=== PATIENT | male | born 1965 | race Caucasian/White ===

== ENCOUNTER 2022-05-04 15:02 | Emergency (ER) | payer BC, OTHER ==
[~2022-05-04] VITALS: Ht 180.3 cm; Wt 95.3 kg
[~2022-05-04 15:02] MED LIST: ALPR1T GT
[2022-05-04 15:39] LABS: BILIRUBIN,URINE NEGATIVE (NEGATIVE); CLARITY,URINE CLEAR; COLOR,URINE AMBER; GLUCOSE, URINE (UA) NEGATIVE (NEGATIVE); KETONES,URINE NEGATIVE (NEGATIVE); LEUKOCYTE ESTERASE ,URINE NEGATIVE (NEGATIVE); NITRITE,URINE NEGATIVE (NEGATIVE); PROTEIN,URINE NEGATIVE (NEGATIVE)
[2022-05-04] MEDS ORDERED: NS IV 1000 ML 1,000 ML IV STA (15:51)
--- NOTE | 2022-05-04 15:55 | ED Abdominal Pain ---
General Chief Complaint: Abdominal/GI Problems Stated Complaint: POSS KIDNEY STONE Nursing Triage Note: PT AMBULATE TO ROOM FT3 WITH C/O LEFT FLANK AND LEFT SIDE ABD PAIN STARTING THIS MORNING. PT REPORTS HX OF KIDNEY STONES AND STATES THAT THIS FEELS LIKE A KIDNEY STONE. Source of Information: Patient Exam Limitations: No Limitations History of Present Illness Date Seen by Provider: May 04, 2022 Time Seen by Provider: 15:52 Initial Comments Patient is a 56-year-old male who presents ED with left lower abdominal pain. Pain started around 10:00 this morning described as a dull constant pain. Rates pain 7 out of 10. Reports a pain and discomfort to the left flank. denies taking anything for pain at home. Nausea without vomiting or diarrhea. Reports pain that radiates into the testicles. Denies of any testicle pain but does have some pain in the groin area. Denies history of an inguinal hernia. No scrotum swelling or redness. Noticed his urine that was dark today. Denies of any pain with urination, vomiting, diarrhea, chest pain, shortness of breath. History of kidney stones and states this feels very similar. Allergies and Home Medications Allergies Coded Allergies: No Known Drug Allergies (Unverified , 02/10/15) Patient Home Medication List Home Medication List Reviewed: Yes Alprazolam (Xanax Tablet) 1 Mg Tab, 1 MG GT Q8H PRN for ANXIETY, (Reported) Entered as Reported by: EMANUEL SNELL on 02/16/15 0830 Hydrocodone/Acetaminophen (Hydrocodone-Acetamin 5-325 mg) 5 Mg-325 Mg Tablet, 1 TAB PO Q4H PRN for PAIN-MODERATE (5-7) Prescribed by: CAMILA VALENZUELA on 05/04/221651 Ondansetron (Ondansetron Odt) 4 Mg Tab.rapdis, 4 MG PO Q4H Prescribed by: CAMILA VALENZUELA on 05/04/221651 Tamsulosin HCl (Flomax) 0.4 Mg Cap, 0.4 MG PO DAILY Prescribed by: CAMILA VALENZUELA on 05/04/221651 Review of Systems Review of Systems Constitutional: No chills, No diaphoresis, No malaise, No weakness EENTM: No Blurred Vision, No Eye Pain Respiratory: Denies Cough, Denies Orthopnea Cardiovascular: Denies Chest Pain Gastrointestinal: Abdominal Pain; Denies Diarrhea; Nausea; Denies Vomiting Genitourinary: Denies Burning, Denies Discharge; Flank Pain, Hematuria Musculoskeletal: back pain; No joint pain Skin: No change in color, No change in hair/nails All Other Systems Reviewed Negative Unless Noted: Yes Past Nrjjcyt-Fmlcgh-Whsmkt Hx Patient Social History Tobacco Use?: No Smoking Status: Never a Smoker Smokeless Tobacco Frequency: Never a User Use of E-Cig and/or Vaping dev: No Use of E-Cig and/or Vaping Uriel: Never a User Substance use?: No Alcohol Use?: Yes Alcohol Frequency: Once in a while Pt feels they are or have been: No Immunizations Up To Date COVID19 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 oz. 83.981335yp; 29.00 BMI Method: General Appearance: WD/WN, no apparent distress HEENT: PERRL/EOMI, normal ENT inspection, TMs normal, pharynx normal Neck: non-tender, full range of motion, supple Respiratory: chest non-tender, lungs clear, normal breath sounds, no respiratory distress Cardiovascular: regular rate, rhythm, no edema, no gallop, no JVD Gastrointestinal: normal bowel sounds, soft, no organomegaly, tenderness (Left lower quadrant tenderness.) Extremities: normal range of motion, non-tender, normal inspection, no pedal edema, no calf tenderness Back: normal inspection, no CVA tenderness, no vertebral tenderness Male: normal genitalia, inguinal tenderness; No testicular tenderness 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, no motor/sensory deficits, alert, normal mood/affect, oriented x 3 Progress/Results/Core Measures Results/Orders Lab Results Laboratory Tests Test 05/04/22 15:27 05/04/22 16:04 Range/Units Urine Color JERALD H Urine Clarity CLEAR Urine pH 7.0 5-9 Urine Specific [place] 1.015 L 1.016-1.022 Urine Protein NEGATIVE NEGATIVE Urine Glucose (UA) NEGATIVE NEGATIVE Urine Ketones NEGATIVE NEGATIVE Urine Nitrite NEGATIVE NEGATIVE Urine Bilirubin NEGATIVE NEGATIVE Urine Urobilinogen 0.2 < = 1.0 MG/DL Urine Leukocyte Esterase NEGATIVE NEGATIVE Urine RBC (Auto) 3+ H NEGATIVE Urine RBC TNTC H /HPF Urine WBC RARE /HPF Urine Squamous Epithelial Cells NONE /HPF Urine Crystals NONE /LPF Urine Bacteria TRACE /HPF Urine Casts NONE /LPF Urine Mucus NEGATIVE /LPF Urine Culture Indicated NO White Blood Count 8.8 4.3-11.0 10^3/uL Red Blood Count 5.42 4.30-5.52 10^6/uL Hemoglobin 15.4 13.3-17.7 g/dL Hematocrit 44 40-54 % Mean Corpuscular Volume 82 80-99 fL Mean Corpuscular Hemoglobin 28 25-34 pg Mean Corpuscular Hemoglobin Concent 35 32-36 g/dL Red Cell Distribution Width 13.5 10.0-14.5 % Platelet Count 295 130-400 10^3/uL Mean Platelet Volume 9.8 9.0-12.2 fL Immature Granulocyte % (Auto) 1 % Neutrophils (%) (Auto) 66 42-75 % Lymphocytes (%) (Auto) 22 12-44 % Monocytes (%) (Auto) 8 0-12 % Eosinophils (%) (Auto) 2 0-10 % Basophils (%) (Auto) 1 0-10 % Neutrophils # (Auto) 5.9 1.8-7.8 10^3/uL Lymphocytes # (Auto) 1.9 1.0-4.0 10^3/uL Monocytes # (Auto) 0.7 0.0-1.0 10^3/uL Eosinophils # (Auto) 0.2 0.0-0.3 10^3/uL Basophils # (Auto) 0.0 0.0-0.1 10^3/uL Immature Granulocyte # (Auto) 0.0 0.0-0.1 10^3/uL Sodium Level 143 135-145 MMOL/L Potassium Level 3.8 3.6-5.0 MMOL/L Chloride Level 105 98-107 MMOL/L Carbon Dioxide Level 26 21-32 MMOL/L Anion Gap 12 5-14 MMOL/L Blood Urea Nitrogen 15 7-18 MG/DL Creatinine 1.49 H 0.60-1.30 MG/DL Estimat Glomerular Filtration Rate 54 BUN/Creatinine Ratio 10 Glucose Level 105 70-105 MG/DL Calcium Level 9.4 8.5-10.1 MG/DL Corrected Calcium 9.1 8.5-10.1 MG/DL Total Bilirubin 0.3 0.1-1.0 MG/DL Aspartate Amino Transf (AST/SGOT) 23 5-34 U/L Alanine Aminotransferase (ALT/SGPT) 43 0-55 U/L Alkaline Phosphatase 82 40-136 U/L Total Protein 7.7 6.4-8.2 GM/DL Albumin 4.4 3.2-4.5 GM/DL Lipase 33 8-78 U/L My Orders Orders - RENITA HERNANDEZ Urinalysis (05/04/22 15:31) Ct Abd/Pelvis Wo(Kidney Stone) (05/04/22 15:51) Cbc With Automated Diff (05/04/22 15:51) Comprehensive Metabolic Panel (05/04/22 15:51) Lipase (05/04/22 15:51) Ns Iv 1000 Ml (Sodium Chloride 0.9%) (05/04/22 15:51) Ketorolac Injection (Toradol Injection) (05/04/22 16:00) Ed Iv/Invasive Line Start (05/04/22 16:06) Medications Given in ED Current Medications Medications Dose Ordered Sig/Antonio Route Start Time Stop Time Status Last Admin Dose Admin Ketorolac Tromethamine 30 mg ONCE ONCE IVP 05/04/22 16:00 05/04/22 16:01 DC 05/04/22 16:04 30 MG Vital Signs/I&O 05/04/22 15:22 Temp 36.0 Pulse 83 Resp 17 B/P (MAP) 153/89 (110) O2 Delivery Room Air Blood Pressure Mean: 110 Departure Communication (PCP) Patient presents the ED with left lower quadrant pain and left flank pain with pain that radiates into the groin. Started this morning. Rates pain 7 out of 10. Patient Was given Toradol with complete resolution of pain. Urinalysis positive for hematuria without evidence of infection. Normal white blood count. Small change in his creatinine 1.49. Urinating without passing of clots. No vomiting here. CT abdomen and pelvis shows 2 stones within the distal left ureter measuring up to 0.2 cm resulting in mild left hydronephrosis. Patient pain improved. Received a liter of fluid. Requesting to be discharged. Patient does not appear septic or toxic. Will discharge with Flomax, pain medication and nausea medication. Recommend urology outpatient follow-up. If any worsening symptoms return back to ED for further evaluation. Impression Primary Impression: Ureterolithiasis Disposition: 01 HOME, SELF-CARE Condition: Stable Departure-Patient Inst. Decision time for Depature: 16:50 Referrals: LAURA CANO DO (PCP) Primary Care Physician BARRY DOMINGUEZ MD Patient Instructions: Kidney Stones (DC) Scripts Ondansetron (Ondansetron Odt) 4 Mg Tab.rapdis 4 MG PO Q4H, #8 TAB Prov: RENITA HERNANDEZ 05/04/22 Hydrocodone/Acetaminophen (Hydrocodone-Acetamin 5-325 mg) 5 Mg-325 Mg Tablet 1 TAB PO Q4H PRN for PAIN-MODERATE (5-7), #8 TAB Prov: RENITA HERNANDEZ 05/04/22 Tamsulosin HCl (Flomax) 0.4 Mg Cap 0.4 MG PO DAILY, #20 CAP Prov: RENITA HERNANDEZ 05/04/22 RENITA HERNANDEZ May 04, 2022 15:55
[2022-05-04 15:58] LABS: BACTERIA,URINE TRACE /HPF; RBC,URINE TNTC /HPF; WBC,URINE RARE /HPF
[2022-05-04] MEDS ORDERED: KETOROLAC 30 MG/ML VIAL IVP ONE (16:00)
[2022-05-04 16:10] LABS: BASOPHILS % (AUTO) 1 % (0-10); EOSINOPHILS # (AUTO) 0.2 10^3/uL (0.0-0.3); EOSINOPHILS % (AUTO) 2 % (0-10); HEMATOCRIT 44 % (40-54); HEMOGLOBIN 15.4 g/dL (13.3-17.7); LYMPHOCYTES # (AUTO) 1.9 10^3/uL (1.0-4.0); LYMPHOCYTES % (AUTO) 22 % (12-44); MEAN CORPUSCULAR HEMOGLOBIN 28 pg (25-34); MEAN CORPUSCULAR HGB CONC 35 g/dL (32-36); MEAN CORPUSCULAR VOLUME 82 fL (80-99); MEAN PLATELET VOLUME 9.8 fL (9.0-12.2); MONOCYTES # (AUTO) 0.7 10^3/uL (0.0-1.0); MONOCYTES % (AUTO) 8 % (0-12); NEUTROPHILS # (AUTO) 5.9 10^3/uL (1.8-7.8); NEUTROPHILS % (AUTO) 66 % (42-75); PLATELET COUNT 295 10^3/uL (130-400); WHITE BLOOD COUNT 8.8 10^3/uL (4.3-11.0)
--- NOTE | 2022-05-04 16:21 | Diagnostic Imaging Report ---
EXAMINATION: CT abdomen and pelvis without contrast. TECHNIQUE: Multiple contiguous axial images were obtained through the abdomen and pelvis without the use of intravenous contrast. All CT scans use one or more of the following dose optimizing techniques: automated exposure control, MA and/or KvP adjustment based on patient size and exam type or iterative reconstruction. HISTORY: llq abd pain COMPARISON: None available. FINDINGS: Lung bases: Bibasilar dependent atelectasis. Solid organs: The liver is normal. The gallbladder is normal. There is no biliary ductal dilation. Pancreas is normal. Spleen is normal. Adrenal glands are normal. There are two stones measuring up to 0.2 cm in the distal left ureter resulting in mild left hydronephrosis. There are additional nonobstructing left renal calculi measuring up to 0.1 cm. The right kidney is unremarkable. Bowel: The stomach and small bowel are normal without obstruction. There are a few scattered colonic diverticula. The appendix is normal. Peritoneum: There is no intraperitoneal free fluid or free air. No suspicious lymphadenopathy. Vasculature: Normal without aneurysm. Musculoskeletal: Degenerative changes of the spine without suspicious osseous lesion or compression fracture. Pelvis: The prostate gland is normal. The urinary bladder is normal. IMPRESSION: 1. Stones within the distal left ureter measuring up to 0.2 cm resulting in mild left hydronephrosis. 2. Additional nonobstructing left renal calculi measuring up to 0.1 cm. Dictated by: Dictated on workstation # [id number]
[2022-05-04 16:33] LABS: ALBUMIN 4.4 GM/DL (3.2-4.5)
[2022-05-04 16:34] LABS: POTASSIUM 3.8 MMOL/L (3.6-5.0)
[2022-05-04 16:35] LABS: CALCIUM 9.4 MG/DL (8.5-10.1)
[2022-05-04 16:36] LABS: TOTAL PROTEIN 7.7 GM/DL (6.4-8.2)
[2022-05-04 16:38] LABS: BILIRUBIN,TOTAL 0.3 MG/DL (0.1-1.0)
[2022-05-04 16:40] LABS: CREATININE SERUM 1.49 MG/DL (0.60-1.30)
[2022-05-04] MEDS ORDERED: TMSL.4C PO (16:52)
[2022-05-04] MEDS ORDERED: ACHD5005 PO (16:52)
[2022-05-04] MEDS ORDERED: ONDA4TAB11 PO (16:52)
[2022-05-04 17:15] VITALS: BP 144/72
[2022-05-05] MEDS ORDERED: OXYC5TAB PO (16:35)
== END 2022-05-04 17:15 | disposition home or self-care (01) ==
LOC: EDUNIT# 15:02 → ER 15:04
DX: N13.2 Hydronephrosis with renal and ureteral calculous obstruction (principal)
CPT/HCPCS: 36415; 74176; 80053; 81000; 83690; 85025

== ENCOUNTER 2022-05-05 15:26 | Emergency (ER) | payer BC ==
[~2022-05-05] VITALS: Ht 180 cm; Wt 95.0 kg
[~2022-05-05 15:26] MED LIST changes: +ACHD5005 PO; +ONDA4TAB11 PO; +TMSL.4C PO
[2022-05-05] MEDS ORDERED: morphine INJ 10 MG/ML 1ML (SYR OR VIAL) IVP STA (15:39)
--- NOTE | 2022-05-05 15:44 | ED Abdominal Pain ---
General Chief Complaint: - Reproductive Stated Complaint: KIDNEY STONES Source of Information: Patient Exam Limitations: No Limitations History of Present Illness Date Seen by Provider: May 05, 2022 Time Seen by Provider: 15:30 Initial Comments Patient is a 56-year-old male who presents to the emergency department today with a chief complaint of kidney stone pain. Patient was seen here in the emergency department yesterday diagnosed with 2 small stones at the UVJ on the left. He was given pain medication, nausea medication and Flomax. Patient states the hydrocodone is not working. He is able to urinate. He denies dysuria, urgency or frequency. He states drinking fluids/water makes his pain worse. He has not been drinking very much today to try and avoid the pain. Normal bowel movement yesterday. States he is almost out of pain pills he was given yesterday. All other review of systems reviewed and negative except as stated Timing/Duration: 12-24 Hours Severity/Quality: Severe, Aching Location: LLQ, Flank (left) Radiation: Groin Associated Symptoms: Nausea/Vomiting Allergies and Home Medications Allergies Coded Allergies: No Known Drug Allergies (Unverified , 02/10/15) Patient Home Medication List Home Medication List Reviewed: Yes Alprazolam (Xanax Tablet) 1 Mg Tab, 1 MG GT Q8H PRN for ANXIETY, (Reported) Entered as Reported by: EMANUEL SNELL on 02/16/15 0830 Hydrocodone/Acetaminophen (Hydrocodone-Acetamin 5-325 mg) 5 Mg-325 Mg Tablet, 1 TAB PO Q4H PRN for PAIN-MODERATE (5-7) Prescribed by: CAMILA VALENZUELA on 05/04/22 165 Ondansetron (Ondansetron Odt) 4 Mg Tab.rapdis, 4 MG PO Q4H Prescribed by: CAMILA VALENZUELA on 05/04/22 165 Oxycodone HCl (Oxycodone HCl) 5 Mg Tablet, 5 MG PO Q6H PRN for PAIN-MODERATE (5- 7) Prescribed by: ANGELIA BARRY on 05/05/22 163 Tamsulosin HCl (Flomax) 0.4 Mg Cap, 0.4 MG PO DAILY Prescribed by: CAMILA VALENZUELA on 05/04/22 165 Review of Systems Review of Systems Constitutional: see HPI EENTM: No Symptoms Reported Respiratory: No Symptoms Reported Cardiovascular: No Symptoms Reported Gastrointestinal: Abdominal Pain, Nausea Genitourinary: No Symptoms Reported Musculoskeletal: no symptoms reported Skin: no symptoms reported Psychiatric/Neurological: No Symptoms Reported All Other Systems Reviewed Negative Unless Noted: Yes Physical Exam Vital Signs Vital Signs - First Documented 05/05/22 05/05/22 15:30 16:21 Temp 36.6 Pulse 100 Resp 18 B/P (MAP) 137/85 Pulse Ox 95 O2 Delivery Room Air Capillary Refill : Height/Weight/BMI Height: 5'11.00" Weight: 185lbs. oz. 83.884960fg; 29.00 BMI Method: General Appearance: WD/WN, no apparent distress HEENT: PERRL/EOMI Neck: normal inspection Respiratory: lungs clear, normal breath sounds, no respiratory distress, no accessory muscle use Cardiovascular: regular rate, rhythm Gastrointestinal: soft, tenderness (mild left flank tenderness; no rebound or guarding; quiet bowel sounds) Extremities: normal range of motion Neurologic/Psychiatric: alert, normal mood/affect, oriented x 3 Skin: normal color, warm/dry Progress/Results/Core Measures Results/Orders Lab Results Laboratory Tests Test 05/05/22 16:30 Range/Units Sodium Level 139 135-145 MMOL/L Potassium Level 3.8 3.6-5.0 MMOL/L Chloride Level 106 98-107 MMOL/L Carbon Dioxide Level 23 21-32 MMOL/L Anion Gap 10 5-14 MMOL/L Blood Urea Nitrogen 18 7-18 MG/DL Creatinine 1.89 H 0.60-1.30 MG/DL Estimat Glomerular Filtration Rate 41 BUN/Creatinine Ratio 10 Glucose Level 113 H 70-105 MG/DL Calcium Level 8.7 8.5-10.1 MG/DL My Orders Orders - ANGELIA BARRY MD Ed Iv/Invasive Line Start (05/05/22 15:38) Basic Metabolic Panel (05/05/22 15:39) Morphine Injection (Morphine Injection (05/05/22 15:39) Glycopyrrolate Injection (Robinul Inject (05/05/22 15:45) Medications Given in ED Current Medications Medications Dose Ordered Sig/Antonio Route Start Time Stop Time Status Last Admin Dose Admin Glycopyrrolate 0.2 mg ONCE ONCE IV 05/05/22 15:45 8/6/22 15:46 DC 05/05/22 16:00 0.2 MG Vital Signs/I&O 05/05/22 05/05/22 15:30 16:21 Temp 36.6 37.0 Pulse 100 99 Resp 18 16 B/P (MAP) 137/85 Pulse Ox 95 95 O2 Delivery Room Air Room Air Departure Impression Primary Impression: Renal colic on left side Disposition: HOME, SELF-CARE Condition: Improved Departure-Patient Inst. Decision time for Depature: 16:33 Referrals: LAURA CANO DO (PCP/Family) Primary Care Physician Patient Instructions: Renal Colic Add. Discharge Instructions: You need to drink plenty of fluids to stay well hydrated and help to flush out your kidneys. Pain medications - oxycodone 5mg every 6 hours for pain. Supplement with 2 extra strength tylenol every 6 hours. Take the flomax nightly. Follow up with Dr Saleem on Saturday (call his office for follow up). Return to the Emergency Department for any new, concerning or emergent complaints, especially fever, vomiting or uncontrollable pain. Scripts Oxycodone HCl (Oxycodone HCl) 5 Mg Tablet 5 MG PO Q6H PRN for PAIN-MODERATE (5-7), #12 TAB Prov: ANGELIA BARRY MD 05/05/22 ANGELIA BARRY MD May 05, 2022 15:44
[2022-05-05] MEDS ORDERED: GLYCOPYRROLATE 0.2 MG/ML (ROBINUL) 2 ML VIAL IV ONE (15:45)
[2022-05-05] MEDS ORDERED: OXYC5TAB PO (16:35)
[2022-05-05 16:49] LABS: POTASSIUM 3.8 MMOL/L (3.6-5.0)
[2022-05-05 16:50] LABS: CALCIUM 8.7 MG/DL (8.5-10.1)
[2022-05-05 16:55] LABS: CREATININE SERUM 1.89 MG/DL (0.60-1.30)
[2022-05-05 17:55] VITALS: BP 153/106
== END 2022-05-05 17:56 | disposition home or self-care (01) ==
LOC: EDUNIT# 15:26 → ER 15:28
DX: N23 Unspecified renal colic (principal)
CPT/HCPCS: 36415; 80048

== ENCOUNTER 2022-05-08 06:29 | Day surgery (SDC) | payer BC ==
[~2022-05-08] VITALS: Ht 180.3 cm; Wt 95.5 kg
[2022-05-08] VITALS (10 sets, daily range): BP systolic 111–144; BP diastolic 73–99
[~2022-05-08 06:29] MED LIST changes: +OXYC5TAB PO
[2022-05-08] MEDS ORDERED: ONDANSETRON 4 MG/2 ML (SDV) Z0FRAN IV ONE (07:00)
[2022-05-08] MEDS ORDERED: FAMOTIDINE 20MG/2ML IV (PEPCID) IV ONE (07:00)
[2022-05-08] MEDS ORDERED: CITRIC ACID/SOB CIT (BICITRA) 30 ML UDC PO ONE (07:00)
[2022-05-08] MEDS ORDERED: MIDAZOLAM 2 MG/2 ML (VERSED) VIAL ONE (07:09)
[2022-05-08] MEDS ORDERED: proPOfol 200 MG/20 ML (DIPRIVAN) VIAL IV ONE (07:09)
[2022-05-08] MEDS ORDERED: ONDANSETRON 4 MG/2 ML (SDV) Z0FRAN ONE (07:09)
[2022-05-08] MEDS ORDERED: GLYCOPYRROLATE 0.2 MG/ML (ROBINUL) 2 ML VIAL ONE (07:09)
[2022-05-08] MEDS ORDERED: NEOSTIGMINE (BLOXIVERZ ) 1 MG/1ML 10 ML VIAL ONE (07:09)
[2022-05-08] MEDS ORDERED: LIDOCAINE PF 2% 5 ML (XYLOCAINE) VIAL ONE (07:09)
[2022-05-08] MEDS ORDERED: fentaNYL INJ 100 MCG/2 ML AMP ONE (07:09)
[2022-05-08] MEDS ORDERED: cefTRIAXone 1 GM PRE-MIX 50 ML IV ONE (07:15)
[2022-05-08] MEDS ORDERED: CATHETER FLUSH 10 ML SYR IVP PRN (07:15)
--- NOTE | 2022-05-08 07:15 | Progress Note-Pre Operative ---
Pre-Operative Progress Note Date of Available H&P: May 08, 2022 Date H&P Reviewed: May 08, 2022 Time H&P Reviewed: 07:15 Changes from last HP NONE Pre-Operative Diagnosis: LT DISTAL URETERAL STONE BARRY DOMINGUEZ MD May 08, 2022 07:15
[2022-05-08] MEDS: LACTATED RINGERS 1,000 ML IV PRN ×2 (07:31→08:40)
--- NOTE | 2022-05-08 07:40 | Progress Note-Post Operative ---
Post-Operative Progess Note Surgeon (s)/Bacteriologist Food (s) Surgeon BARRY DOMINGUEZ MD Bacteriologist Food: NONE Pre-Operative Diagnosis LT DISTAL URETERAL STONES Post-Operative Diagnosis SAME AND MEATAL STRICTURE Procedure & Operative Findings Date of Procedure 05/08/22 Procedure Performed/Findings UD,CYSTOSCOPY, LT URETEROSCOPY WITH STONES BASKET AND RETROGRADE UROGRAM Anesthesia Type GENERAL Estimated Blood Loss Estimated blood loss (mL): NONE Specimens/Packing Specimens Removed 2 STONES FOR ANALYSIS Packing: NONE BARRY DOMINGUEZ MD May 08, 2022 07:40
--- NOTE | 2022-05-08 07:41 | Discharge Inst-Urology ---
Discharge Inst-Urology Reconcile Patient Problems Problems Reviewed?: Yes Final Diagnosis LT DISTAL URETERAL STONES Patient Instructions/Follow Up Plan/Assessment/Instructions Please make appointment to been seen in office in 3 weeks. Increase oral fluids for 48 hours and then as needed. Diet and Activity as tolerated. If questions or concerns contact your physician Or seek help at emergency department. BARRY DOMINGUEZ MD May 08, 2022 07:41
[2022-05-08] MEDS ORDERED: SUCCINYLCHOLINE INJ 100 MG/5 ML SYR/VIAL ONE (07:59)
[2022-05-08] MEDS ORDERED: KETOROLAC 30 MG/ML VIAL ONE (08:07)
[2022-05-08] MEDS ORDERED: FUROSEMIDE 40 MG/4 ML INJ (LASIX) ONE (08:07)
[2022-05-08] MEDS ORDERED: ROCURONIUM 50 MG/5 ML (ZEMURON) VIAL IV ONE (08:30)
[2022-05-08] MEDS ORDERED: morphine INJ 10 MG/ML 1ML (SYR OR VIAL) IVP ONE (08:30)
[2022-05-08] MEDS ORDERED: SEVOFLURANE (ULTANE) 15 ML INHAL SOLN ONE (08:30)
[2022-05-08] MEDS ORDERED: ONDANSETRON 4 MG/2 ML (SDV) Z0FRAN IVP PRN (08:30)
--- NOTE | 2022-05-08 08:37 | Diagnostic Imaging Report ---
INDICATION: ESWL. Correlated with abdominal pelvic CT 05/04/2022. FINDINGS: No opaque stones over the course of the renal shadows found. There is no bowel obstruction. Faint left pelvic calcifications are present one of which presumed to be the known distal left ureteral stone the others the known vascular calcifications present at that earlier CT. No acute finding. IMPRESSION: Left pelvic calcifications unchanged when correlated with earlier CT. No bowel obstruction. Dictated by: Dictated on workstation # [id number]
[2022-05-08] MEDS ORDERED: PHEN-640 PO (09:27)
[2022-05-08] MEDS ORDERED: SULF1TAB38 PO (09:27)
[2022-05-08] MEDS ORDERED: KETO10TA PO (09:27)
--- NOTE | 2022-05-08 13:10 | OPERATIVE REPORT ---
DATE OF SERVICE: 05/08/2022 PREOPERATIVE DIAGNOSIS: Left distal ureteral stones. POSTOPERATIVE DIAGNOSES: Left distal ureteral stones and meatal stenosis. OPERATION PERFORMED: Urethral dilatation, cystoscopy, left ureteroscopy with stone basket and retrograde urogram. SURGEON: Barry Dominguez MD ANESTHESIA: General. COMPLICATIONS: None. DESCRIPTION OF PROCEDURE: Under satisfactory general anesthesia, the patient in lithotomy position, genitalia were prepped and draped in the usual sterile fashion. Attempt to pass a 23-Vincentian cystoscope met resistance at the meatus. This was dilated with Isidro sounds from 24 to 28 easily to accommodate the scope easily. Anterior urethra was normal. There was no further stricture. The prostate was mildly enlarged with some medium bar. The bladder was entered and revealed some trabeculation. Ureteric orifices were normal in shape, size and configuration with clear efflux, sluggish on the left side. Using the foroblique lens, I dilated the left ureteral orifice intramural portion to accommodate a 6.9 Vincentian semi-rigid ureteroscope. There were two stones as described by the CT. I went ahead and grabbed them together with a 3-Vincentian Salgado basket. One of them fell into the bladder. I went back with ureteroscope to confirm the integrity of the ureter and no further stones visualized. I injected contrast to confirm that no filling defect and complete fast emptying of the ureter. Then, I removed the ureteroscope, reinserted the cystoscope, grabbed the second stone that fell into the bladder with the stone grasping forceps and removed it, sent both stones for analysis. I emptied the bladder, removed the cystoscope. The patient tolerated the procedure and anesthesia well and was sent to recovery room in stable condition. PLAN: We discussed with him and his in three weeks stone workup and just follow the stone diet instructions. It is also mentioned that he received 40 mg of Lasix and 30 mg of Toradol IV at the end of the procedure. CC: Dr. La - requested, unable to deliver. Job ID: [id number] DocumentID: [id number] Dictated Date: 05/08/2022 08:34:57 [place] Rug [employer]ter Date: 05/08/2022 13:09:24 Dictated By: BARRY DOMINGUEZ MD
--- NOTE | 2022-05-08 13:15 | Anesthesia-General Post-Op ---
General Patient Condition Mental Status/LOC: Same as Preop Cardiovascular: Satisfactory Nausea/Vomiting: Absent Respiratory: Satisfactory Pain: Controlled Complications: Absent Post Op Complications Complications None Follow Up Care/Instructions Patient Instructions None needed. Anesthesia/Patient Condition Patient Condition Patient was doing well this morning after the procedure without complaint, stable vital signs, no apparent adverse anesthesia problems. No complications reported per nursing. MIRZA DICKINSON DO May 08, 2022 13:15
== END 2022-05-08 10:25 | disposition home or self-care (01) ==
LOC: SDC 06:29
PROVIDERS: ATTEND Urology
DX: N20.1 Calculus of ureter (principal); N35.911 Unspecified urethral stricture, male, meatal; F17.220 Nicotine dependence, chewing tobacco, uncomplicated
CPT/HCPCS: 74018; 76000; 87081

== ENCOUNTER → 2022-05-14 | Outpatient (CLI) | payer BC ==
[~2022-05-14] MED LIST changes: +KETO10TA PO; +PHEN-640 PO; +SULF1TAB38 PO
--- NOTE | 2022-05-14 15:53 | Diagnostic Imaging Report ---
INDICATION: Nephrolithiasis KUB 3:18 PM There is a moderate amount of stool in the colon. Bowel gas pattern is normal. There are no pathologic masses or calcifications seen. IMPRESSION: Unremarkable KUB Dictated by: Dictated on workstation # [id number]
== END ==
LOC: RAD 14:29
PROVIDERS: ATTEND Urology
DX: N20.2 Calculus of kidney with calculus of ureter (principal)
CPT/HCPCS: 74018

== ENCOUNTER → 2023-05-28 | Outpatient (CLI) | payer BC, SELFPAY ==
--- NOTE | 2023-05-28 16:04 | Diagnostic Imaging Report ---
INDICATION: Intermittent chest pain. Coronary artery screening. CT coronary calcium study performed with noncontrast images of the heart followed by calculation of cardiac calcium score. Dose reduction protocol was used. Raw data images demonstrate abnormal soft tissue density in the anterior mediastinum. This is not completely visualized on this study, would recommend a full chest CT with contrast for further evaluation. There are no enlarged axillary nodes. Is no pleural or pericardial fluid. Lung windows show no focal abnormality, the entirety of the lungs are not included on this study. There is some mild calcium in the LAD territory. Coronary calcium score in the LAD was 27.3. There is no significant calcification in the right coronary artery or LAD or circumflex territories. IMPRESSION: Coronary calcium score of 27.3 is compatible with mild overall plaque burden, the entirety of the calcification is in the LAD territory. Consider further workup if clinically warranted. Raw data images demonstrate abnormal soft tissue density in the anterior mediastinum, as above. This area is not completely visualized on this study. Would recommend full chest CT with contrast for further evaluation. Report faxed to Dr. La at 4:04 PM 05/28/2023/cb Dictated by: Dictated on workstation # [id number]
== END ==
LOC: RAD 13:27
PROVIDERS: ATTEND Internal Medicine
DX: Z13.6 Encounter for screening for cardiovascular disorders (principal); I70.8 Atherosclerosis of other arteries
CPT/HCPCS: 75571

== ENCOUNTER → 2023-08-08 | Outpatient (CLI) | payer BC ==
[~2023-08-08] MED LIST changes: +CATHETER FLUSH 10 ML SYR IV PRN; +HOLD METFORMIN - RECEIVED CONTRAST 20 ML VIAL IV SCH; +IOHEXOL 350 MG/ML 100 ML (OMNIPAQUE 350) VIAL IV ONE; +NS 100 ML (IVPB) BAG IV ONE
[2023-08-08 10:27] LABS: CREATININE SERUM 1.28 MG/DL (0.60-1.30)
--- NOTE | 2023-08-08 11:21 | Diagnostic Imaging Report ---
PROCEDURE: CT angiography Chest TECHNIQUE: After intravenous administration of contrast, thin section axial CT angiography of the chest was performed. 3D MIP reconstructions were made. All CT scans use one or more of the following dose optimizing techniques: automated exposure control, MA and/or KvP adjustment based on a patient size and exam type, or iterative reconstruction. INDICATION: Basal cell carcinoma. Elevated d-dimer. COMPARISON: Calcium scoring CT from 05/28/2023 FINDINGS: Vasculature: No pulmonary emboli. No CT evidence of pulmonary hypertension or right ventricular strain. Thoracic aorta is normal in caliber. No aortic dissection or pseudoaneurysm. Heart and mediastinum: Visualized thyroid is normal. No supraclavicular, axillary, or intra-thoracic lymphadenopathy. In the anterior mediastinum there is a 4.0 x 3.2 cm area of soft tissue attenuation that has convex lateral margins. This does not encase the pulmonary trunk or ascending aorta. The heart is normal in size without pericardial effusion. Pleura: No pleural effusion or pneumothorax. Lungs and airway: No endoluminal lesion in the trachea or central bronchi. No pneumonia or edema. No suspicious pulmonary nodules. Upper abdomen: No concerning abnormality in the upper abdomen. Musculoskeletal: No concerning osseous lesion. IMPRESSION: 1. No acute cardiopulmonary process. Specifically, no pulmonary emboli or acute aortic syndrome. 2. Anterior mediastinal soft tissue mass remains indeterminate and lymphoma is a possibility. Therefore, PET/CT is advised for further assessment. Dictated by: Dictated on workstation # [id number]
== END ==
LOC: RAD 09:53
PROVIDERS: ATTEND Internal Medicine
DX: R22.2 Localized swelling, mass and lump, trunk (principal)
CPT/HCPCS: 36415; 71275; 82565; 84520

== ENCOUNTER → 2023-08-21 | Outpatient (CLI) | payer BC ==
[~2023-08-21] VITALS: Ht 177.8 cm; Wt 94.8 kg
[~2023-08-21] MED LIST changes: -CATHETER FLUSH 10 ML SYR IV PRN; -HOLD METFORMIN - RECEIVED CONTRAST 20 ML VIAL IV SCH; -IOHEXOL 350 MG/ML 100 ML (OMNIPAQUE 350) VIAL IV ONE; -NS 100 ML (IVPB) BAG IV ONE
== END | disposition home or self-care (01) ==
LOC: PREOP 15:53
PROVIDERS: ATTEND Surgery
DX: Z01.818 Encounter for other preprocedural examination (principal)

== ENCOUNTER 2023-08-26 10:18 | Day surgery (SDC) | payer BC ==
[~2023-08-26] VITALS: Ht 177 cm; Wt 94.8 kg
[2023-08-26] MEDS ORDERED: LACTATED RINGERS 1,000 ML 1,000 ML IV PRN (10:30)
[2023-08-26] MEDS ORDERED: ceFAZolin INJECTION 2,000 MG in NS (IVPB) 50 ML 50 ML IV ONE (10:30)
[2023-08-26 10:40] VITALS: BP 143/92
[2023-08-26] MEDS ORDERED: LIDOCAINE 2% w/EPI 1:100,000 20 ML VIAL ONE (11:22)
[2023-08-26] MEDS ORDERED: HEParin (CENTRAL IV FLUSH) 500 UNIT/5 ML SYR ONE (11:22)
[2023-08-26] MEDS ORDERED: 0.9% SODIUM CHLORIDE PF INJ 20 ML VIAL ONE (11:22)
[2023-08-26] MEDS ORDERED: LIDOCAINE 2% w/EPI 1:100,000 20 ML VIAL INJ ONE (11:40)
[2023-08-26] MEDS ORDERED: 0.9% SODIUM CHLORIDE PF INJ 20 ML VIAL IV ONE (11:41)
[2023-08-26] MEDS ORDERED: HEParin (CENTRAL IV FLUSH) 500 UNIT/5 ML SYR IV ONE (11:42)
--- NOTE | 2023-08-26 11:48 | Progress Note-Pre Operative ---
Pre-Operative Progress Note Date H&P Reviewed: Aug 26, 2023 Time H&P Reviewed: 11:47 History & Physical: H&P Reviewed, Patient Examed, No changes noted Pre-Operative Diagnosis: large b cell lymphoma EDMOND BROWN DO Aug 26, 2023 11:48
[2023-08-26 12:30] VITALS: BP 118/61
[2023-08-26 12:40] VITALS: BP 117/81
[2023-08-26 12:50] VITALS: BP 131/84
[2023-08-26 12:55] VITALS: BP_SYST 125; BP_SYST 131; BP_DIAS 83; BP_DIAS 98
--- NOTE | 2023-08-26 13:07 | Discharge Inst-Simple/Standard ---
Discharge Inst-Standard Patient Instructions/Follow Up Plan of Care/Instructions/FU: Jaxson 2 weeks. Ice pack on 15 min and off 30 min and repeat for first 48 hours. This reduces swelling and discomfort. Activity as Tolerated: No Discharge Diet: Regular Diet Other Inst to Patient Follow up Appt: Jaxson 2 weeks. Ice pack on 15 min and off 30 min and repeat for first 48 hours. This reduces swelling and discomfort. Instructions: No lifting greater than 10 pounds. No strenuous activity. May shower in 24 hours, no tub bath or soaking. Use incentive spirometer at home as directed. No Smoking Skin/Wound Care: You have special glue over your incision that will fall off on it's own. Symptoms to Report: Appetite Changes, Extremity Discoloration, Numbness/Tingling, Swelling Increased, Bleeding Excessive, Eyesight Changes, Pain Increased, Urine Color Change, Constipation(Persistent), Fever over 101 degree F, Pain/Pressure in chest, Urinating Difficulty, Cough Up/Vomit Blood, Heart Beat Irreg/Pounding, Pain/Pressure in jaw, Vaginal Bleeding Increase, Cramps in feet or legs, Lightheadedness, Pain/Pressure in shoulder, Diarrhea(Persistent), Memory Changes Suddenly, Questions/Concerns, Weight gain consecutive days, Dizziness/Fainting, Nausea/Vomiting, Shortness of Breath, Weight gain over 2 pounds If questions or concerns contact your physician Or seek help at emergency department. EDMOND BROWN DO Aug 26, 2023 13:07
--- NOTE | 2023-08-26 13:08 | Progress Note-Post Operative ---
Post-Operative Progess Note Surgeon (s)/Director Of Sports Performance (s) Surgeon EDMOND BROWN DO Director Of Sports Performance: na Pre-Operative Diagnosis large b cell lymphoma Post-Operative Diagnosis same Procedure & Operative Findings Date of Procedure 08/26/23 Procedure Performed/Findings PROCEDURE: Right internal jugular port placement using ultrasound guidance. COMPLICATIONS: None. INDICATIONS: The patient is a 57 year old male with large b cell lymphoma. Patient understands the risks and benefits of port placement and wished to proceed with the procedure. Consent was signed on the chart. PROCEDURE: The patient was taken to the operating suite, was prepped and draped in the sterile fashion. A surgical pause was performed. Ultrasound was used to locate the internal jugular vein. Once located anesthetic was infiltrated above it. Using micro-access kit, the right internal vein was accessed. Dark nonpulsatile blood was withdrawn. The wire was inserted. Fluoroscopy assured proper placement. The needle was removed. The micro-access dilator was advanced over the wire and the wire was removed. The regular wire was inserted and fluoroscopy assured proper placement. The wire was then secured. Local anesthetic was used to anesthetize from the neck for tunneling down to the right chest and for pocket creation. A 15 blade scalpel was used to make an incision over the right chest. Cautery was used to dissect down to the pectoral fascia. A pocket was created with blunt dissection. The dilator sheath was then advanced over the wire under fluoroscopy and the dilator and wire were removed. The Groshong catheter was inserted through the sheath and the sheath was then removed. The Groshong wire was removed. The catheter was then tunneled to the right chest pocket. Fluoroscopy was used to cut to length and this was then attached to the port which was then placed within the pocket. The port was then accessed without difficulty. It was then flushed with saline and then heparin. The subcutaneous tissues were then reapproximated using 3-0 Vicryl. The areas were then washed and dried. Skin Affix was placed over incision. The insertion point of the neck Skin Affix was placed over the incision. The patient tolerated the procedure well without complication and was taken to recovery room in stable condition. Chest x-ray is pending. Anesthesia Type mac c local Estimated Blood Loss Estimated blood loss (mL): minimal Specimens/Packing Specimens Removed EDMOND Shore DO Aug 26, 2023 13:08
[2023-08-26 13:25] VITALS: BP 138/98
--- NOTE | 2023-08-26 14:54 | Diagnostic Imaging Report ---
INDICATION: Port-A-Cath placement. Fluoroscopic guidance. COMPARISON: None Total fluoroscopy time: 14.8 seconds Total number of fluoroscopic images saved: 1 FINDINGS: Fluoroscopic guidance was provided intraoperatively during Port-A-Cath placement. Image provided shows right internal jugular venous approach. Central tip appears to terminate over the SVC. Evaluation for pneumothorax is suboptimal given fluoroscopic modality. Please note, interpreting radiologist was not present during the procedure. IMPRESSION: 1. Fluoroscopic guidance provided during Port-A-Cath placement, as above. Dictated by: Dictated on workstation # [id number]
--- NOTE | 2023-08-26 14:55 | Diagnostic Imaging Report ---
INDICATION: Status post Port-A-Cath placement COMPARISON: None FINDINGS: Single frontal view of the chest demonstrates normal heart size and pulmonary vascularity. The lungs are well aerated and clear. No large pleural effusion or pneumothorax is seen. The visualized osseous structures show no acute abnormalities. Right internal jugular Port-A-Cath is seen with tip in the SVC. IMPRESSION: 1. No acute cardiopulmonary process. 2. Right internal jugular Port-A-Cath, as above. Dictated by: Dictated on workstation # [id number]
--- NOTE | 2023-08-26 16:13 | Anesthesia-General Post-Op ---
MAC Patient Condition Mental Status/LOC: Same as Preop Cardiovascular: Satisfactory Nausea/Vomiting: Absent Respiratory: Satisfactory Pain: Controlled Complications: Absent Post Op Complications Complications None Follow Up Care/Instructions Patient Instructions None needed. Anesthesiology Discharge Order Discharge Order Patient is doing well, no complaints, stable vital signs, no apparent adverse anesthesia problems. No complications reported per nursing. JELENA RIOS CRNA Aug 26, 2023 16:13
== END 2023-08-26 13:45 | disposition home or self-care (01) ==
LOC: SDC 10:18
PROVIDERS: ATTEND Surgery
DX: C83.30 Diffuse large B-cell lymphoma, unspecified site (principal); E66.9 Obesity, unspecified; Z68.30 Body mass index [BMI] 30.0-30.9, adult
CPT/HCPCS: 36561; 71045; 76000; 87081; C1788

== ENCOUNTER → 2023-08-27 | Outpatient (CLI) | payer BC | LOC: CARD 10:48 | PROVIDERS: ATTEND Internal Medicine Hematology & Oncology | DX: I51.7 Cardiomegaly (principal); C85.20 Mediastinal (thymic) large B-cell lymphoma, unspecified site; Z79.899 Other long term (current) drug therapy | CPT/HCPCS: 93306 ==

== ENCOUNTER 2023-08-28 08:39 | Outpatient (CLI) | payer BC ==
[2023-08-28] VITALS (11 sets, daily range): BP systolic 128–151; BP diastolic 83–100
[~2023-08-28] VITALS: Ht 177.8 cm; Wt 94.8 kg
[2023-08-28] MEDS ORDERED: NS IV 1000 ML 1,000 ML IV STA ×2 (09:10→12:00)
[2023-08-28] MEDS ORDERED: fentaNYL INJECTION 100 MCG/2 ML VIAL IVP ONE (09:15)
[2023-08-28] MEDS ORDERED: LIDOCAINE 1% INJ 10 ML VIAL INJ ONE (09:15)
[2023-08-28] MEDS ORDERED: MIDAZOLAM INJ 2 MG/2 ML VIAL IVP ONE (09:15)
[2023-08-28 09:22] LABS: ABSOLUTE RETIC # 81 10e9/uL (24-90); BASOPHILS % (AUTO) 1 % (0-10); EOSINOPHILS # (AUTO) 0.1 10^3/uL (0.0-0.3); EOSINOPHILS % (AUTO) 2 % (0-10); HEMATOCRIT 42 % (40-54); HEMOGLOBIN 13.6 g/dL (13.3-17.7); LYMPHOCYTES # (AUTO) 1.6 10^3/uL (1.0-4.0); LYMPHOCYTES % (AUTO) 25 % (12-44); MEAN CORPUSCULAR HEMOGLOBIN 27 pg (25-34); MEAN CORPUSCULAR HGB CONC 32 g/dL (32-36); MEAN CORPUSCULAR VOLUME 85 fL (80-99); MEAN PLATELET VOLUME 10.2 fL (9.0-12.2); MONOCYTES # (AUTO) 0.5 10^3/uL (0.0-1.0); MONOCYTES % (AUTO) 9 % (0-12); NEUTROPHILS # (AUTO) 4.1 10^3/uL (1.8-7.8); NEUTROPHILS % (AUTO) 64 % (42-75); PLATELET COUNT 250 10^3/uL (130-400); RETICULOCYTE % 1.64 % (0.50-2.40); WHITE BLOOD COUNT 6.4 10^3/uL (4.3-11.0)
[2023-08-28 10:25] LABS: BAND NEUTROPHILS 0 %; BASOPHILS % (MANUAL) 0 %; EOSINOPHILS % (MANUAL) 6 %; LYMPHOCYTES % (MANUAL) 27 %; MONOCYTES % (MANUAL) 5 %; NEUTROPHILS % (MANUAL) 62 %; RBC MORPH NORMAL
[2023-08-28 10:25] LABS: INR 0.9 (0.8-1.4); PROTHROMBIN TIME PATIENT 12.4 SEC (12.2-14.7)
[2023-08-28] MEDS: MIDAZOLAM INJ 2 MG/2 ML VIAL IVP ONE ×2 (11:09→12:07)
[2023-08-28] MEDS: fentaNYL INJECTION 100 MCG/2 ML VIAL IVP ONE ×2 (11:09→12:07)
[2023-08-28] MEDS: LIDOCAINE 1% INJ 10 ML VIAL INJ ONE ×2 (11:09→12:07)
[2023-08-28] MEDS ORDERED: HYDROcodone/ACETAMINOPHEN 5 MG/325 MG TABLET PO PRN (12:30)
--- NOTE | 2023-08-28 12:30 | Pre-Op Note & Conscious Sedat ---
Pre-Operative Progress Note Date of Available H&P: Aug 28, 2023 Date H&P Reviewed: Aug 28, 2023 Time H&P Reviewed: 11:00 Pre-Op Diagnosis: lymphoma Moderate Sedation PreProcedure Time 11:00 ASA Score 2 Airway Lungs Heart ASA score ASA 1: a normal healthy patient ASA 2: a patient with a mild systemic disease (mid diabetes, controlled hypertension, obesity ASA 3: a patient with a severe systemic disease that limits activity (angina, COPD, prior Myocardial infarction) ASA 4: a patient with an incapacitating disease that is a constant threat to life (CHF, renal failure) ASA 5: a moribund patient not expected to survive 24 hrs. (ruptured aneurysm) ASA 6: a declared brain- patient whose organs are being harvested. For emergent operations, add the letter E after the classification Mallampati Classification Grade 2 Sedation Plan Analgesia, Amnesia, Plan communicated to team members, Discussed options with patient/fam, Discussed risks with patient/fam The patient is an appropriate candidate to undergo the planned procedure, sedation, and anesthesia. The patient immediately re-assessed prior to indication. SONYA BEDOYA MD Aug 28, 2023 12:30
--- NOTE | 2023-08-28 13:31 | Diagnostic Imaging Report ---
INDICATION: B-cell lymphoma. Patient presents for CT-guided bone marrow aspiration and biopsy. DETAILS OF THE PROCEDURE: The patient was brought to the CT suite and placed on the table in the prone position. Axial imaging through the pelvis was performed to evaluate for an appropriate entry site. The procedure was performed utilizing conscious sedation with Radiology nursing and constant patient monitoring. The patient was given a total of 50 micrograms of fentanyl intravenously and 1 milligram of Versed intravenously. Total procedure time was approximately 5 minutes. The low back was prepped and draped in the usual sterile fashion. A small amount of 1% lidocaine was utilized for local anesthesia. A bone marrow needle was advanced and placed with its tip along the posterior cortex of the right iliac bone. The needle was advanced through the cortex utilizing a bone marrow drill. Two bone marrow aspirates were then obtained. Next, the bone marrow drill was utilized to obtain a bone marrow core biopsy. The needle was withdrawn and hemostasis was obtained. The patient tolerated the procedure well and left the Department in stable condition. IMPRESSION: Successful CT-guided bone marrow aspiration and core biopsy utilizing conscious sedation. Pathology results are currently pending. Dictated by: Dictated on workstation # [id number]
== END 2023-08-28 14:30 ==
LOC: RAD 08:39
PROVIDERS: ATTEND Internal Medicine Hematology & Oncology
DX: C83.00 Small cell B-cell lymphoma, unspecified site (principal)
CPT/HCPCS: 36415; 38222; 77012; 85007; 85027; 85045; 85055; 85610; 85730; 99156